=== PATIENT | male | born 2000 | race American Indian/Alaskan Native ===

== ENCOUNTER 2018-12-29 13:48 | Emergency (ER) | payer OTHER ==
[2018-12-29 14:15] VITALS: BP 136/92
--- NOTE | 2018-12-29 14:23 | Event Note ---
ED Screening Note Date of service: 12/29/18 Time: 14:21 ED Screening Note: 18 y o presents to ED cc of blood in urine This initial assessment/diagnostic orders/clinical plan/treatment(s) is/are subject to change based on patients health status, clinical progression and re- assessment by fellow clinical providers in the ED. Further treatment and workup at subsequent clinical providers discretion. Patient/guardian urged not to elope from the ED as their condition may be serious if not clinically assessed and managed. Initial orders include: ua
[2018-12-29 15:11] LABS: Bilirubin,Urine NEG (Negative); Blood,Urine MOD (Negative); Color,Urine Yellow (Yellow); Mucus,Urine 3+ /HPF; Protein,Urine <15 mg/dL mg/dL (Negative)
--- NOTE | 2018-12-29 17:13 | Emergency Department Report ---
ED General Adult HPI - General Chief complaint: Urogenital-Male Stated complaint: BLOOD IN URINE Time Seen by Provider: 12/29/18 14:21 Source: patient Mode of arrival: Ambulatory Limitations: No Limitations - History of Present Illness Initial comments: 18yo M states that he has had blood in urine since yesterday. He describes little to no pain but the large amounts of blood in his urine are concerning. -: days(s) (2) Location: abdomen, pelvis Radiation: non-radiation Severity scale (0 -10): 0 Quality: other Consistency: other Improves with: none Worsens with: none Associated Symptoms: denies other symptoms Treatments Prior to Arrival: none - Related Data Previous Rx's Medication Instructions Recorded Last Taken Type Antipyrine/Benzocaine 2 drops AD Q4HR #1 bottle 10/14/14 Unknown Rx [Antipyrine-Benzocaine Otic Gabriela] Ciprofloxacin/Hydrocortisone 3 drop AD BID 7 Days bottle 10/14/14 Unknown Rx [Ciprofloxacin HC OTIC] Acetamin/Codeine 120-12Mg/5 ml 5 ml PO TID PRN #30 ml 01/29/15 Unknown Rx [Tylenol/Codeine] Acetaminophen/Codeine [Tylenol #3] 1 tab PO Q6H PRN #15 tab 05/29/15 Unknown Rx Ibuprofen [Motrin 800 MG tab] 800 mg PO Q8HR PRN #30 tablet 05/29/15 Unknown Rx Ibuprofen [Motrin 600 MG tab] 600 mg PO Q8H PRN #21 tablet 12/29/18 Unknown Rx Allergies Allergy/AdvReac Type Severity Reaction Status Date / Time No Known Allergies Allergy Verified 12/29/18 13:53 ED Review of Systems ROS: Stated complaint: BLOOD IN URINE Other details as noted in HPI Constitutional: denies: chills, fever Eyes: denies: eye pain, eye discharge, vision change ENT: denies: ear pain, throat pain Respiratory: denies: cough, shortness of breath, wheezing Cardiovascular: denies: chest pain, palpitations Endocrine: no symptoms reported Gastrointestinal: denies: abdominal pain, nausea, diarrhea Genitourinary: as per HPI Musculoskeletal: denies: back pain, joint swelling, arthralgia Skin: denies: rash, lesions Neurological: denies: headache, weakness, paresthesias Psychiatric: as per HPI Hematological/Lymphatic: denies: easy bleeding, easy bruising ED Past Medical Hx - Past Medical History Previous Medical History?: No - Surgical History Past Surgical History?: No - Social History Smoking Status: Current Every Day Smoker Substance Use Type: Alcohol - Medications Home Medications: Home Medications Medication Instructions Recorded Confirmed Last Taken Type Antipyrine/Benzocaine 2 drops AD Q4HR #1 bottle 10/14/14 Unknown Rx [Antipyrine-Benzocaine Otic Gabriela] Ciprofloxacin/Hydrocortisone 3 drop AD BID 7 Days bottle 10/14/14 Unknown Rx [Ciprofloxacin HC OTIC] Acetamin/Codeine 120-12Mg/5 ml 5 ml PO TID PRN #30 ml 01/29/15 Unknown Rx [Tylenol/Codeine] Acetaminophen/Codeine [Tylenol #3] 1 tab PO Q6H PRN #15 tab 05/29/15 Unknown Rx Ibuprofen [Motrin 800 MG tab] 800 mg PO Q8HR PRN #30 tablet 05/29/15 Unknown Rx Ibuprofen [Motrin 600 MG tab] 600 mg PO Q8H PRN #21 tablet 12/29/18 Unknown Rx ED Physical Exam - General Limitations: No Limitations General appearance: alert, in no apparent distress - Head Head exam: Present: atraumatic, normocephalic - Eye Eye exam: Present: normal appearance - ENT ENT exam: Present: mucous membranes moist - Neck Neck exam: Present: normal inspection - Respiratory Respiratory exam: Present: normal lung sounds bilaterally. Absent: respiratory distress - Cardiovascular Cardiovascular Exam: Present: regular rate, normal rhythm. Absent: systolic murmur, diastolic murmur, rubs, gallop - GI/Abdominal GI/Abdominal exam: Present: soft, tenderness (upon palpation of RLQ and suprapubic area), normal bowel sounds - Rectal Rectal exam: Present: deferred - exam: Present: normal inspection External exam: Present: normal external exam - Extremities Exam Extremities exam: Present: normal inspection - Back Exam Back exam: Present: CVA tenderness (L) - Neurological Exam Neurological exam: Present: alert, oriented X3 - Psychiatric Psychiatric exam: Present: normal affect, normal mood - Skin Skin exam: Present: warm, dry, intact, normal color. Absent: rash ED Course Vital Signs 12/29/18 14:14 Temperature 98.4 F Pulse Rate 70 Respiratory 16 Rate Blood Pressure 136/92 O2 Sat by Pulse 100 Oximetry ED Medical Decision Making - Medical Decision Making 18yo M states that he has had blood in urine since yesterday. He describes little to no pain but the large amounts of blood in his urine are concerning. Pt urinated after the collected urine was taken and he stated that his second urine had a round small hard mass. Pt was informed that he has passed a kidney stone. He was informed that Ibuprofen will be provided for his new increased suprapubic and L CVA pain, also he will be referred to Urology. See ER if symptoms worsen or new severe symptoms arise. Critical care attestation.: If time is entered above; I have spent that time in minutes in the direct care of this critically ill patient, excluding procedure time. ED Disposition Clinical Impression: Kidney stones Disposition: TO HOME OR SELFCARE Is pt being admited?: No Does the pt Need Aspirin: No Condition: Stable Instructions: Kidney Stones (ED) Additional Instructions: Pt was informed that he has passed a kidney stone. He was informed that Ibuprofen will be provided for his new increased suprapubic and L CVA pain, also he will be referred to Urology. See ER if symptoms worsen or new severe symptoms arise. Prescriptions: Ibuprofen [Motrin 600 MG tab] 600 mg PO Q8H PRN #21 tablet PRN Reason: Pain Referrals: PRIMARY CARE, [Primary Care Provider] - 3-5 Days ARABELLA LACEY MD [Staff Physician] - 3-5 Days Time of Disposition: 17:22
== END 2018-12-29 17:32 | disposition home or self-care (01) ==
LOC: ED 13:48
DX: N20.0 Calculus of kidney (principal); F17.200 Nicotine dependence, unspecified, uncomplicated; Z79.899 Other long term (current) drug therapy
CPT/HCPCS: 81001; 99283

== ENCOUNTER 2019-01-31 13:13 | Emergency (ER) | payer BC, OTHER ==
[2019-01-31 13:38] VITALS: BP 136/71
--- NOTE | 2019-01-31 13:38 | Event Note ---
ED Screening Note Date of service: 01/31/19 Time: 13:36 ED Screening Note: 18 y o male presents with blood in ua and abdominal pain cc of flank pain This initial assessment/diagnostic orders/clinical plan/treatment(s) is/are subject to change based on patients health status, clinical progression and re- assessment by fellow clinical providers in the ED. Further treatment and workup at subsequent clinical providers discretion. Patient/guardian urged not to elope from the ED as their condition may be serious if not clinically assessed and managed. Initial orders include: ua US abd
--- NOTE | 2019-01-31 14:12 | XRay Report ---
ABDOMEN 1 VIEW(S) INDICATION / CLINICAL INFORMATION: flank pain, hematuria. COMPARISON: None available. FINDINGS: TUBES / LINES: None. BOWEL GAS PATTERN: No significant abnormality. FREE AIR / EXTRALUMINAL GAS: None seen. ADDITIONAL FINDINGS: No significant additional findings. IMPRESSION: No significant abnormality. No obvious nephrolithiasis on KUB. Signer Name: Caleb Green Jr, MD Signed: 01/31/2019 2:07 PM Workstation Name: [id number]
[2019-01-31 14:41] LABS: Bacteria,Urine 1+ /HPF (Negative); Bilirubin,Urine NEG (Negative); Blood,Urine LG (Negative); Color,Urine Yellow (Yellow); Mucus,Urine 3+ /HPF; Urobilinogen,Urine < 2.0 mg/dL (<2.0)
--- NOTE | 2019-01-31 16:03 | Emergency Department Report ---
ED Abdominal Pain HPI - General Chief Complaint: Abdominal Pain Stated Complaint: BLOOD IN URINE/POSS KIDNEY STONE Time Seen by Provider: 01/31/19 13:35 Source: patient Mode of arrival: Ambulatory Limitations: No Limitations - History of Present Illness Initial Comments: Patient reports "passing little swathi" left flank pain, hematuria and dysuria that started two weeks ago. Complaint: flank pain Onset/Timin -: week(s) Location: L flank Radiation: LUQ Migration to: no migration Severity: moderate Severity scale (0 -10): 4 Quality: aching Consistency: intermittent Improves With: nothing Worsens With: other (urination) Context: other (none) Associated Symptoms: dysuria, hematuria. denies: nausea, vomiting, diarrhea, fever, chills, constipation, hematemesis, melena, anorexia, syncope Treatments Prior to Arrival: other (none) - Related Data Previous Rx's Medication Instructions Recorded Last Taken Type Antipyrine/Benzocaine 2 drops AD Q4HR #1 bottle 10/14/14 Unknown Rx [Antipyrine-Benzocaine Otic Gabriela] Ciprofloxacin/Hydrocortisone 3 drop AD BID 7 Days bottle 10/14/14 Unknown Rx [Ciprofloxacin HC OTIC] Acetamin/Codeine 120-12Mg/5 ml 5 ml PO TID PRN #30 ml 01/29/15 Unknown Rx [Tylenol/Codeine] Acetaminophen/Codeine [Tylenol #3] 1 tab PO Q6H PRN #15 tab 05/29/15 Unknown Rx Ibuprofen [Motrin 800 MG tab] 800 mg PO Q8HR PRN #30 tablet 05/29/15 Unknown Rx Ibuprofen [Motrin 600 MG tab] 600 mg PO Q8H PRN #21 tablet 12/29/18 Unknown Rx Ciprofloxacin HCl [Ciprofloxacin 500 mg PO Q12HR #14 tab 01/31/19 Unknown Rx TAB] Phenazopyridine [Pyridium] 200 mg PO BID #9 tab 01/31/19 Unknown Rx Allergies Allergy/AdvReac Type Severity Reaction Status Date / Time No Known Allergies Allergy Verified 12/29/18 13:53 ED Review of Systems ROS: Stated complaint: BLOOD IN URINE/POSS KIDNEY STONE Other details as noted in HPI Constitutional: denies: chills, fever Eyes: denies: eye pain, eye discharge, vision change ENT: denies: ear pain, throat pain Respiratory: denies: cough, orthopnea, shortness of breath, SOB with exertion, SOB at rest, stridor, wheezing Cardiovascular: denies: chest pain, palpitations, dyspnea on exertion, orthopnea Endocrine: no symptoms reported Gastrointestinal: other (Left flank). denies: abdominal pain, nausea, vomiting, diarrhea Genitourinary: dysuria, hematuria. denies: urgency Musculoskeletal: denies: back pain, joint swelling, arthralgia Skin: denies: rash, lesions Neurological: denies: headache, weakness, paresthesias Psychiatric: denies: anxiety, depression Hematological/Lymphatic: denies: easy bleeding, easy bruising ED Past Medical Hx - Past Medical History Previous Medical History?: No - Surgical History Past Surgical History?: No - Social History Smoking Status: Never Smoker Substance Use Type: Marijuana - Medications Home Medications: Home Medications Medication Instructions Recorded Confirmed Last Taken Type Antipyrine/Benzocaine 2 drops AD Q4HR #1 bottle 10/14/14 Unknown Rx [Antipyrine-Benzocaine Otic Gabriela] Ciprofloxacin/Hydrocortisone 3 drop AD BID 7 Days bottle 10/14/14 Unknown Rx [Ciprofloxacin HC OTIC] Acetamin/Codeine 120-12Mg/5 ml 5 ml PO TID PRN #30 ml 01/29/15 Unknown Rx [Tylenol/Codeine] Acetaminophen/Codeine [Tylenol #3] 1 tab PO Q6H PRN #15 tab 05/29/15 Unknown Rx Ibuprofen [Motrin 800 MG tab] 800 mg PO Q8HR PRN #30 tablet 05/29/15 Unknown Rx Ibuprofen [Motrin 600 MG tab] 600 mg PO Q8H PRN #21 tablet 12/29/18 Unknown Rx Ciprofloxacin HCl [Ciprofloxacin 500 mg PO Q12HR #14 tab 01/31/19 Unknown Rx TAB] Phenazopyridine [Pyridium] 200 mg PO BID #9 tab 01/31/19 Unknown Rx ED Physical Exam - General Limitations: No Limitations General appearance: alert, in no apparent distress - Respiratory Respiratory exam: Present: normal lung sounds bilaterally. Absent: respiratory distress, wheezes, rales, rhonchi, chest wall tenderness, accessory muscle use, decreased breath sounds, prolonged expiratory - Cardiovascular Cardiovascular Exam: Present: regular rate, normal rhythm, normal heart sounds. Absent: systolic murmur, diastolic murmur, rubs, gallop - GI/Abdominal GI/Abdominal exam: Present: soft, tenderness (LUQ and LLQ), normal bowel sounds. Absent: guarding, rebound, rigid - Expanded GI/Abdominal Exam Expanded GI/Abdominal exam: Absent: psoas sign, obturator sign, heel tap sign, Madsen's sign, Rovsing's sign, tenderness at [place]'s Point, ascites - Rectal Rectal exam: Present: deferred - Extremities Exam Extremities exam: Present: normal inspection, full ROM, normal capillary refill - Back Exam Back exam: Present: normal inspection, full ROM. Absent: tenderness, CVA tenderness (R), CVA tenderness (L), muscle spasm, paraspinal tenderness, vertebral tenderness, rash noted - Neurological Exam Neurological exam: Present: alert, oriented X3, CN II-XII intact, normal gait, reflexes normal - Psychiatric Psychiatric exam: Present: normal affect, normal mood - Skin Skin exam: Present: warm, dry, intact, normal color. Absent: rash ED Course Vital Signs 01/31/19 13:35 Temperature 98.6 F Pulse Rate 84 Respiratory 16 Rate Blood Pressure 136/71 O2 Sat by Pulse 98 Oximetry ED Medical Decision Making - Lab Data Lab Results 01/31/19 Range/Units Unknown Urine Color Yellow (Yellow) Urine Turbidity Slightly-cloudy (Clear) Urine pH 5.0 (5.0-7.0) Ur Specific [place] 1.020 (1.003-1.030) Urine Protein 30 mg/dl (Negative) mg/dL Urine Glucose (UA) Neg (Negative) mg/dL Urine Ketones Neg (Negative) mg/dL Urine Blood Lg (Negative) Urine Nitrite Neg (Negative) Urine Bilirubin Neg (Negative) Urine Urobilinogen < 2.0 (<2.0) mg/dL Ur Leukocyte Esterase Tr (Negative) Urine WBC (Auto) 6.0 (0.0-6.0) /HPF Urine RBC (Auto) 43.0 (0.0-6.0) /HPF Urine Bacteria (Auto) 1+ (Negative) /HPF Urine Mucus 3+ /HPF Vital Signs 01/31/19 13:35 Temperature 98.6 F Pulse Rate 84 Respiratory 16 Rate Blood Pressure 136/71 O2 Sat by Pulse 98 Oximetry - Radiology Data Radiology results: image reviewed ABDOMEN 1 VIEW(S) INDICATION / CLINICAL INFORMATION: flank pain, hematuria. COMPARISON: None available. FINDINGS: TUBES / LINES: None. BOWEL GAS PATTERN: No significant abnormality. FREE AIR / EXTRALUMINAL GAS: None seen. ADDITIONAL FINDINGS: No significant additional findings. IMPRESSION: No significant abnormality. No obvious nephrolithiasis on KUB. - Medical Decision Making During the course of ED, radiology and laboratory studies were ordered. Radiology studies revealed no significant abnormality or obvious nephrolithiasis on KUB. Based on urinalysis which showed a trace of leukocytes, rbcs' and mucous, patient was sent home with prescriptions for Ciprofloxacin and pyridium. He was informed that the Cipro antibiotic has complications associated with it such as increased risk of tendon rupture. Avoid any strenuous exercise while on this. Stop the antibiotic if you develop any unusual muscle or tendon pain. He verbalized understanding. - Differential Diagnosis Kidney Stones, Hematuria, Abdominal Pain Critical care attestation.: If time is entered above; I have spent that time in minutes in the direct care of this critically ill patient, excluding procedure time. ED Disposition Clinical Impression: Kidney stone on left side Abdominal pain Qualifiers: Abdominal location: left upper quadrant Qualified Code(s): R10.12 - Left upper quadrant pain Disposition: DC-01 TO HOME OR SELFCARE Is pt being admited?: No Does the pt Need Aspirin: No Condition: Stable Instructions: Kidney Stones (ED) Additional Instructions: Take medication as directed. Follow up with the selective referral given at discharge. Return back to the ED for worsening symptoms or concerns. Prescriptions: Ciprofloxacin HCl [Ciprofloxacin TAB] 500 mg PO Q12HR #14 tab Phenazopyridine [Pyridium] 200 mg PO BID #9 tab Referrals: MILTON AZEVEDO NP [Advanced Practice Nurse] - 3-5 Days IBRAHIMA MENDEZ NP [Advanced Practice Nurse] - 3-5 Days Forms: Work/School Release Form(ED) Time of Disposition: 16:10
== END 2019-01-31 16:05 | disposition home or self-care (01) ==
LOC: ED 13:13
DX: N20.0 Calculus of kidney (principal); F12.10 Cannabis abuse, uncomplicated; Z79.899 Other long term (current) drug therapy; Z79.1 Long term (current) use of non-steroidal anti-inflammatories (NSAID)
CPT/HCPCS: 74018; 81001; 99283

== ENCOUNTER 2019-03-11 00:07 | Emergency (ER) | payer SELFPAY ==
[2019-03-11 00:12] VITALS: BP 131/94
[2019-03-11] MEDS ORDERED: prednisoLONE SOD PHOSPHATE 15 MG/5 ML ORAL LIQD PO ONE (02:51)
[2019-03-11] MEDS ORDERED: AMOXICILLIN 250 MG/10 ML ORAL SYRINGE PO ONE (02:51)
[2019-03-11] MEDS ORDERED: IBUPROFEN ORAL LIQD 100 MG/5 ML ORAL.LIQD PO ONE (02:51)
--- NOTE | 2019-03-11 02:57 | Emergency Department Report ---
ED ENT HPI - General Chief complaint: Sore Throat Stated complaint: STREP THROAT Time Seen by Provider: 03/11/19 02:51 Source: patient Mode of arrival: Ambulatory Limitations: No Limitations - History of Present Illness Initial comments: Mr. Gastelum is s 18 y/o aam who presents for " strep throat" state throat pain with exudate and lesions x 7 days , dysphagia, There is no stridor no wheezing, no sob, no n/v. states noc fever thought no tmax recorded at home. no fever in triage tonight. pt is tolerating po intake liquids. State he takes ibuprofen for pain /fever. MD complaint: sore throat Onset/Timin -: week(s) Location: throat Severity: moderate Severity scale (0 -10): 5 Quality: burning, sharp Consistency: intermittent Improves with: NSAID Worsens with: swallowing Associated Symptoms: fever, pain with swallowing, sore throat. denies: cough, tinnitus, rhinorrhea - Related Data Previous Rx's Medication Instructions Recorded Last Taken Type Antipyrine/Benzocaine 2 drops AD Q4HR #1 bottle 10/14/14 Unknown Rx [Antipyrine-Benzocaine Otic Gabriela] Ciprofloxacin/Hydrocortisone 3 drop AD BID 7 Days bottle 10/14/14 Unknown Rx [Ciprofloxacin HC OTIC] Acetamin/Codeine 120-12Mg/5 ml 5 ml PO TID PRN #30 ml 01/29/15 Unknown Rx [Tylenol/Codeine] Acetaminophen/Codeine [Tylenol #3] 1 tab PO Q6H PRN #15 tab 05/29/15 Unknown Rx Ibuprofen [Motrin 800 MG tab] 800 mg PO Q8HR PRN #30 tablet 05/29/15 Unknown Rx Ibuprofen [Motrin 600 MG tab] 600 mg PO Q8H PRN #21 tablet 12/29/18 Unknown Rx Ciprofloxacin HCl [Ciprofloxacin 500 mg PO Q12HR #14 tab 01/31/19 Unknown Rx TAB] Phenazopyridine [Pyridium] 200 mg PO BID #9 tab 01/31/19 Unknown Rx Amoxicillin [Trimox CAP] 500 mg PO Q8H 10 Days #30 capsule 03/11/19 Unknown Rx Ibuprofen [Motrin 800 MG tab] 800 mg PO Q8HR PRN #30 tablet 03/11/19 Unknown Rx predniSONE [Deltasone] 40 mg PO QDAY 5 Days #10 tab 03/11/19 Unknown Rx Allergies Allergy/AdvReac Type Severity Reaction Status Date / Time No Known Allergies Allergy Verified 12/29/18 13:53 ED Dental HPI - General Chief complaint: Sore Throat Stated complaint: STREP THROAT Time Seen by Provider: 03/11/19 02:51 Source: patient Mode of arrival: Ambulatory Limitations: No Limitations - Related Data Previous Rx's Medication Instructions Recorded Last Taken Type Antipyrine/Benzocaine 2 drops AD Q4HR #1 bottle 10/14/14 Unknown Rx [Antipyrine-Benzocaine Otic Gabriela] Ciprofloxacin/Hydrocortisone 3 drop AD BID 7 Days bottle 10/14/14 Unknown Rx [Ciprofloxacin HC OTIC] Acetamin/Codeine 120-12Mg/5 ml 5 ml PO TID PRN #30 ml 01/29/15 Unknown Rx [Tylenol/Codeine] Acetaminophen/Codeine [Tylenol #3] 1 tab PO Q6H PRN #15 tab 05/29/15 Unknown Rx Ibuprofen [Motrin 800 MG tab] 800 mg PO Q8HR PRN #30 tablet 05/29/15 Unknown Rx Ibuprofen [Motrin 600 MG tab] 600 mg PO Q8H PRN #21 tablet 12/29/18 Unknown Rx Ciprofloxacin HCl [Ciprofloxacin 500 mg PO Q12HR #14 tab 01/31/19 Unknown Rx TAB] Phenazopyridine [Pyridium] 200 mg PO BID #9 tab 01/31/19 Unknown Rx Amoxicillin [Trimox CAP] 500 mg PO Q8H 10 Days #30 capsule 03/11/19 Unknown Rx Ibuprofen [Motrin 800 MG tab] 800 mg PO Q8HR PRN #30 tablet 03/11/19 Unknown Rx predniSONE [Deltasone] 40 mg PO QDAY 5 Days #10 tab 03/11/19 Unknown Rx Allergies Allergy/AdvReac Type Severity Reaction Status Date / Time No Known Allergies Allergy Verified 12/29/18 13:53 ED Review of Systems ROS: Stated complaint: STREP THROAT Other details as noted in HPI Constitutional: fever. denies: chills Eyes: denies: eye pain, eye discharge, vision change ENT: throat pain Respiratory: denies: cough, shortness of breath, wheezing Cardiovascular: denies: chest pain, palpitations Endocrine: no symptoms reported Gastrointestinal: as per HPI Genitourinary: denies: urgency, dysuria Musculoskeletal: denies: back pain, joint swelling, arthralgia Skin: denies: rash, lesions Neurological: denies: headache, weakness, paresthesias Psychiatric: denies: anxiety, depression Hematological/Lymphatic: denies: easy bleeding, easy bruising ED Past Medical Hx - Past Medical History Previous Medical History?: No - Surgical History Past Surgical History?: No - Social History Smoking Status: Never Smoker Substance Use Type: Alcohol, Marijuana - Medications Home Medications: Home Medications Medication Instructions Recorded Confirmed Last Taken Type Antipyrine/Benzocaine 2 drops AD Q4HR #1 bottle 10/14/14 Unknown Rx [Antipyrine-Benzocaine Otic Gabriela] Ciprofloxacin/Hydrocortisone 3 drop AD BID 7 Days bottle 10/14/14 Unknown Rx [Ciprofloxacin HC OTIC] Acetamin/Codeine 120-12Mg/5 ml 5 ml PO TID PRN #30 ml 01/29/15 Unknown Rx [Tylenol/Codeine] Acetaminophen/Codeine [Tylenol #3] 1 tab PO Q6H PRN #15 tab 05/29/15 Unknown Rx Ibuprofen [Motrin 800 MG tab] 800 mg PO Q8HR PRN #30 tablet 05/29/15 Unknown Rx Ibuprofen [Motrin 600 MG tab] 600 mg PO Q8H PRN #21 tablet 12/29/18 Unknown Rx Ciprofloxacin HCl [Ciprofloxacin 500 mg PO Q12HR #14 tab 01/31/19 Unknown Rx TAB] Phenazopyridine [Pyridium] 200 mg PO BID #9 tab 01/31/19 Unknown Rx Amoxicillin [Trimox CAP] 500 mg PO Q8H 10 Days #30 capsule 03/11/19 Unknown Rx Ibuprofen [Motrin 800 MG tab] 800 mg PO Q8HR PRN #30 tablet 03/11/19 Unknown Rx predniSONE [Deltasone] 40 mg PO QDAY 5 Days #10 tab 03/11/19 Unknown Rx ED Physical Exam - General Limitations: No Limitations General appearance: alert, in no apparent distress - Head Head exam: Present: atraumatic, normocephalic - Eye Eye exam: Present: normal appearance, PERRL, EOMI Pupils: Present: normal accommodation - ENT ENT exam: Present: mucous membranes moist, TM's normal bilaterally, normal external ear exam - Expanded ENT Exam Expanded Throat exam: Positive: tonsillar erythema, tonsillomegaly, tonsillar exudate, other (uvula midline mild lesions, mild exudate no stridor ). Negative: R peritonsillar mass, L peritonsillar mass - Neck Neck exam: Present: normal inspection, full ROM, lymphadenopathy. Absent: tenderness, meningismus, thyromegaly - Expanded Neck Exam Expanded Neck exam: Absent: midline deformity, anterior neck swelling, thyroid mass, carotid bruit, tracheal deviation - Respiratory Respiratory exam: Present: normal lung sounds bilaterally. Absent: respiratory distress, wheezes, stridor, chest wall tenderness - Cardiovascular Cardiovascular Exam: Present: regular rate, normal rhythm, normal heart sounds. Absent: systolic murmur, diastolic murmur, rubs, gallop - GI/Abdominal GI/Abdominal exam: Present: soft, normal bowel sounds - Rectal Rectal exam: Present: deferred - Extremities Exam Extremities exam: Present: normal inspection - Back Exam Back exam: Present: normal inspection, full ROM. Absent: tenderness - Neurological Exam Neurological exam: Present: alert, oriented X3, CN II-XII intact, normal gait - Psychiatric Psychiatric exam: Present: normal affect, normal mood - Skin Skin exam: Present: warm, dry, intact, normal color ED Course Vital Signs 03/11/19 00:11 Temperature 97.8 F Pulse Rate 56 L Respiratory 18 Rate Blood Pressure 131/94 O2 Sat by Pulse 98 Oximetry ED Medical Decision Making - Medical Decision Making This is pharyngitis plan: prednisone, ibuprofen, amoxicillin, follow up with pcp in 2-3 days return to ed if symptoms worsen. pt verbalized agreement and understanding of discharge plan. Critical care attestation.: If time is entered above; I have spent that time in minutes in the direct care of this critically ill patient, excluding procedure time. ED Disposition Clinical Impression: Pharyngitis Qualifiers: Pharyngitis/tonsillitis etiology: unspecified etiology Qualified Code(s): J02.9 - Acute pharyngitis, unspecified Disposition: DC- TO HOME OR SELFCARE Is pt being admited?: No Does the pt Need Aspirin: No Condition: Stable Instructions: Pharyngitis (ED) Prescriptions: predniSONE [Deltasone] 40 mg PO QDAY 5 Days #10 tab Ibuprofen [Motrin 800 MG tab] 800 mg PO Q8HR PRN #30 tablet PRN Reason: pain fever Amoxicillin [Trimox CAP] 500 mg PO Q8H 10 Days #30 capsule Referrals: OBIEKWE,ONWURA, MD [Staff Physician] - 3-5 Days Forms: Work/School Release Form(ED) Time of Disposition: 03:10
== END 2019-03-11 03:46 | disposition home or self-care (01) ==
LOC: ED 00:07
DX: J02.9 Acute pharyngitis, unspecified (principal); F10.10 Alcohol abuse, uncomplicated; F12.10 Cannabis abuse, uncomplicated; Z79.899 Other long term (current) drug therapy
CPT/HCPCS: J7510